=== PATIENT | female | born 1965 | race Caucasian/White ===

== ENCOUNTER 2017-05-03 09:44 | Emergency (ER) | payer MEDICAID ==
[~2017-05-03] VITALS: Ht 167.6 cm; Wt 90.7 kg
[2017-05-03 10:02] VITALS: Ht 167.6 cm; Wt 90.7 kg
[2017-05-03 12:04] VITALS: BP 102/78
== END 2017-05-03 12:04 | disposition home or self-care (01) ==
LOC: ED 09:44
DX: J10.1 Influenza due to other identified influenza virus with other respiratory manifestations (principal); R19.7 Diarrhea, unspecified; I10 Essential (primary) hypertension; Z88.6 Allergy status to analgesic agent
CPT/HCPCS: 87804; Q0162

== ENCOUNTER 2018-10-06 15:10 | Emergency (ER) | payer MEDICAID ==
[~2018-10-06] VITALS: Ht 170.2 cm; Wt 97.5 kg
[2018-10-06 15:34] VITALS: Ht 170.2 cm; Wt 97.5 kg
[2018-10-06 17:10] VITALS: BP 126/85
== END 2018-10-06 17:10 | disposition home or self-care (01) ==
LOC: ED 15:10
DX: T78.40XA Allergy, unspecified, initial encounter (principal); I10 Essential (primary) hypertension; Z88.6 Allergy status to analgesic agent; W57.XXXA Bitten or stung by nonvenomous insect and other nonvenomous arthropods, initial encounter

== ENCOUNTER 2019-03-22 14:00 | Emergency (ER) | payer MEDICAID ==
[~2019-03-22] VITALS: Ht 170.2 cm; Wt 97.1 kg
[2019-03-22 14:26] VITALS: BP 147/84; Ht 170.2 cm; Wt 97.1 kg
== END 2019-03-22 17:00 | disposition home or self-care (01) ==
LOC: ED 14:00
DX: S93.601A Unspecified sprain of right foot, initial encounter (principal); R05 Cough; X50.1XXA Overexertion from prolonged static or awkward postures, initial encounter; Y93.9 Activity, unspecified; Y92.89 Other specified places as the place of occurrence of the external cause; Y99.8 Other external cause status